=== PATIENT | female | born 1965 | race Caucasian/White ===

== ENCOUNTER 2023-03-18 12:18 | Inpatient (IN) | payer OTHER ==
[~2023-03-18] VITALS: Ht 172.7 cm; Wt 103.8 kg
[2023-03-18 15:20] VITALS: BP 147/83
[2023-03-18] MEDS ORDERED: PAROEX473 ML MM (15:27)
--- NOTE | 2023-03-18 15:41 | NUR ---
ADMIT NOTE: REPORT RECEIVED FROM VITA SAENZ IN [place]. PT ARRIVED TO UNIT VIA WHEELCHAIR. PT A/O X 4, IND WITH TX TO BED. PT DENIES CHEST PAIN, SOB, NAUSEA. PT ORIENTED TO ROOM, CALL LIGHT AND FALL PRECAUTIONS. NOTIFIED PT ON UNIT. AWAITING ORDERS.
[2023-03-18 16:56] LABS: Hematocrit 42.2 % (33.0-51.0); Mean Corpuscular HGB 28.9 pg (26.0-34.0); Mean Corpuscular HGB Conc 33.2 g/dL (31.5-36.5); Mean Corpuscular Volume 87 fL (80-100); Mean Platelet Volume 10.2 fL (9.1-12.4); Platelet Count 246 K/mm3 (150-400); RDW Standard Deviation 38.6 fL (35.1-46.3); Red Blood Cell Count 4.85 M/mm3 (3.80-5.20)
[2023-03-18 17:03] LABS: Bun/Creatinine Ratio 16.4 (12.0-20.0); Calcium, Blood 8.8 mg/dL (8.5-10.1); Creatinine, Blood 0.61 mg/dL (0.40-1.00); Potassium, Blood 3.7 mmol/L (3.5-5.5)
--- NOTE | 2023-03-18 18:53 | NUR ---
SHIFT SUMMARY: PT A/O X 4, IND IN ROOM. PLEASANT AND COOPERATIVE WITH CARE. PT DENIES CP THIS SHIFT. PT TOLERATING ORAL INTAKE WELL. TELEMETRY REPORTED SLIGHT ST ELEVATION PT WAS ASYMPTOMATIC DURING REPORT. PT EDUCATED ON IGNITION SOURCES AND RISK FOR INJURY WHILE SMOKING WITH OXYGEN. PT VU. PT IS NOT ON OXYGEN AND DENIES HAVING ANY IGNITION SOURCES. PT SHOWED NO SIGNS OF UTILIZING IGNITION SOURCES WHILE ROUNDING.
[2023-03-18 20:03] VITALS: BP 132/77
[2023-03-19 04:22] VITALS: BP 114/58
--- NOTE | 2023-03-19 04:25 | NUR ---
SHIFT SUMMARY NO NEW ISSUES. PT HAS DENIED CX PAIN/ PRESSURE OR SOB. PT HAD A GRISSOM AND SOME ANXIETY, PT TX PER MAR WITH RELIEF. PT HAS BEEN NPO SINCE 0000 HRS. PT HAS SLEPT COMFORTABLY DURING SHIFT. CALL LIGHT IN REACH.
[2023-03-19 08:58] VITALS: BP 132/86
[2023-03-19 14:29] VITALS: BP 138/73
--- NOTE | 2023-03-19 14:49 | NUR ---
CALLED DR WALDEN- PT CALLED STATING SHE HAD THIS NAGGING 1/10 CHEST DISCOMFORT STARTING AT THE MID AXILLARY LEFT CHEST AND RADIATING INTO THE MIDDLE OF THE LEFT CHEST, PT DOES NOT APPEAR TO BE IN ANY DISTRESS. PT STATES THE PAIN STARTED WHEN THE RESTING PORTION OF THE STRESS TEST WAS STARTED, BUT IT ISNT GETTING ANY BETTER. VSS AT THIS TIME NO CHANGE ON TELE. SPOKE TO DR WALDEN AND RECIEVED AN ORDER FOR AN EKG NOW AND CTM.
--- NOTE | 2023-03-19 19:30 | NUR ---
SHIFT SUMMARY- PT ALERT, ORIENTED AND INDEPENDENT IN THE ROOM. PT HAS STATED LEFT SIDED CHEST PAIN 09/25. EKG DONE AND IN THE CHART. PT HAD A PE STUDY AND THE FIRST HALF OF THE CARDIAC STRESS TEST DONE. PT TO BE NPO AT MIDNIGHT WATER AND ICE OK. PT IN BED AT THE TIME OF BEDSIDE REPORT, NO S&S OF DISTRESS NOTED AT THAT TIME.
[2023-03-19 19:40] VITALS: BP 139/90
[2023-03-20 02:43] VITALS: BP 113/62
--- NOTE | 2023-03-20 07:24 | NUR ---
NPO FOR STRESS TEST THIS MORNING. DENIES CP THIS MORNING. MILD ANXIETY ABOUT STRESS TEST OTHERWISE NO ISSUES. INDEPENDENT, AO, PLEASANT, VSS. UNEVENTFUL NIGHT.
--- NOTE | 2023-03-20 08:00 | NUR ---
0.4 MG IV LEXISCAN GIVEN AT 0800 DURING STRESS TEST. UNABLE TO DOCUMENT IN EMAR
[2023-03-20 15:16] VITALS: BP 143/83
--- NOTE | 2023-03-20 16:38 | NUR ---
PT IS A/OX4, PLEASANT AND COOPERATIVE, THE PT IS UP IND IN HER ROOM. THE PT APPEARS TO BE BREATHING EASILY ON RA AT THIS TIME. THE PT DENIED ANY C/P OR N/V T/O THE DAY. THE PT COMPLETED THE ORDERED STRESS TEST THIS AM. THE PT IS NOW SCHEDULED FOR A ANGIOGRAM IN THE EARLY AM 03/21/23. CALL LIGHT IN REACH, WILL CONTINUE TO MONIOT AND ASSESS FOR CHANGES
[2023-03-20 19:29] VITALS: BP 134/81
[2023-03-21] VITALS (8 sets, daily range): BP systolic 107–147; BP diastolic 68–92
--- NOTE | 2023-03-21 05:31 | NUR ---
SHIFT SUMMARY PT REQUESTED ATIVAN X1 THIS SHIFT WITH POSITIVE EFFECT. NO CP OR C/O HEADACHE. NPO SINCE MIDNIGHT FOR ANGIOGRAM THIS MORNING
--- NOTE | 2023-03-21 08:56 | NUR ---
PATIENT ARRIVED TO FLOOR FROM [facility] AT 0850. PATIENT IS A&OX4. VS ARE WNL AND IS ON RA. HER RIGHT WRIST TR BAND IS ON AND HAD NO HEMATOMA OR ACTIVE BLEEDING AT THIS TIME. PATIENT DENIES NUMBNESS OR TINGLING IN ALL EXTREMITIES. CAN MOVE ALL FINGERS AND TOES WHEN ASKED. FINGERS ARE WARM TO TOUCH. PATIENT IS LAYING IN BED WITH CALL LIGHT IN REACH. PATIENT AND PATIENTS WERE EDUCATED ON IGNITION SOURCES AND RISK OF INJURY WITH OXYGEN IN USE. BOTH VERBALIZED UNDERSTANDING OF EDUCATION AND HAD NO FURTHER QUESTIONS AT THIS TIME. IS AT BEDSIDE.
--- NOTE | 2023-03-21 09:54 | NUR ---
PATIENTS TR BAND CONTINUES TO NOT HAD A HEMATOMA OR ACTIVE BLEEDING. VS ARE WNL AND IS ON RA. PATIENT DENIES CHEST PAIN OR PRESSURE. FINGERS ARE WARM TO TOUCH. SHE DENIES NUMBNESS OR TINGLING IN ALL EXTREMITIES. PATIENT CONTINUES TO LAY IN BED WITH CALL LIGHT IN REACH. AT BEDSIDE.
--- NOTE | 2023-03-21 10:42 | NUR ---
PATIENTS TR BAND SITE CONTINUES TO NOT HAVE A HEMATOMA OR ACTIVE BLEEDING. FINGERS AND TOES ARE WARM TO TOUCH AND IS ABLE TO MOVE ALL FINGERS AND TOES. PATIENT DENIES CHEST PAIN OR SOB. VS ARE WNL AND IS ON RA WITH >90% OXYGEN SATS. PATIENT TOLERATED PO INTAKE. SHE IS LAYING IN BED WITH CALL LIGHT IN REACH. AT BEDSIDE.
--- NOTE | 2023-03-21 10:47 | NUR ---
IT HAS BEEN ABOUT 2 HOURS SINCE THE TR BAND WITH 10CC OF AIR WAS PLACED. THIS NURSE DECREASED THE 10CC OF AIR BY 2CC AND MONITORED IT FOR 5 MINUTES AFTERWARDS. THERE IS NO HEMATOMA OR ACTIVE BLEEDING OCCURING. PATIENT IS LAYING IN BED WITH CALL LIGHT IN REACH.
--- NOTE | 2023-03-21 10:58 | NUR ---
AFTER 10 MINUTES THIS NURSE WENT IN AND TOOK ANOTHER 2CC'S OF AIR OUT OF THE TR BAND FOR A 6CC'S AT THIS TIME. THIS NURSE WAITED ABOUT 3 MINUTES AND THE RADIAL SITE HAD NO HEMATOMA OR ACTIVE BLEEDING. PATIENTS FINGERS ARE WARM TO TOUCH AND SHE DENIES NUMBNESS OR TINGLING. PATIENT IS LAYING IN BED WITH CALL LIGHT IN REACH. AT BEDSIDE.
--- NOTE | 2023-03-21 11:17 | NUR ---
THIS NURSE DECREASED THE TR BAND AIR BALLOON BY ANOTHER 2CC'S WHICH IS A TOTAL OF 4CC'S. THIS NURSE WAITED FOR ABOUT 3 MINUTES AFTER DECREASING THE AIR AND THERE WAS NO HEMATOMA OR ACTIVE BLEEDING. PATIENTS VS ARE WNL AND IS ON RA WITH >90% OXYGEN SATS. FINGERS ARE WARM TO TOUCH AND CAN MOVE ALL FINGERS AND TOES. SHE IS LAYING IN BED WITH CALL LIGHT IN REACH AND AT BEDSIDE.
--- NOTE | 2023-03-21 11:42 | NUR ---
LATE ENTRY PT ALERT AND ORIENTED X4. INDEPENDENT. ANGIOGRAM PLANNED. REPORT GIVEN TO PCU NURSE.
--- NOTE | 2023-03-21 12:29 | NUR ---
THIS NURSE JUST LET OUT ANOTHER 2CC'S OF AIR FROM THE TR BAND WITH A TOTAL OF 2CC'S LEFT. THIS NURSE WAITED ANOTHER 3 MINUTES AFTERWARDS AND THERE WAS NO HEMATOMA OR BLEEDING NOTED. PATIENT IS ABLE TO MOVE ALL FINGERS AND TOES. SHE IS TOLERATING PO INTAKE. SHE IS LAYING IN BED WITH CALL LIGHT IN REACH AND AT BEDSIDE.
--- NOTE | 2023-03-21 12:43 | NUR ---
THIS NURSE JUST TOOK OUT THE LAST 2CC'S OF AIR IN THE AIR BALLOON FOR THE TR BAND. THIS NURSE WAITED A FEW MINUTES AND THERE WAS NO HEMATOMA OR ACTIVE BLEEDING THAT OCCURRED. SHE IS VOIDING AND TOLERATING PO INTAKE. SHE IS LAYING IN BED AND HAS CALL LIGHT WITHIN REACH.
--- NOTE | 2023-03-21 13:24 | NUR ---
THIS NURSE WAITED 30 MINUTES AFTER TAKING OUT ALL OF THE AIR FROM THE TR AIR BALLOON THEN TOOK OFF THE TR BAND AND PLACED A TEGADERM OVER THE INCISION. NO HEMATOMA OR ACTIVE BLEEDING HAPPENED TO RADIAL SITE. TEGADERM IS C/D/I WITH ARM BAND IN PLACE. PATIENT DENIES NUMBNESS OR TINGLING TO ALL FINGERS AND TOES. PATIENT IS LAYING IN BED WITH CALL LIGHT IN REACH AND AT BEDSIDE.
--- NOTE | 2023-03-21 16:47 | NUR ---
SHIFT SUMMARY: PATIENT IS A&OX4. VS ARE WNL AND IS ON RA. PATIENT DENIES PAIN THROUGHOUT SHIFT. HER RIGHT RADIAL SITE FROM HER ANGIOGRAM EARLIER TODAY HAS TEGADERM OVER IT AND IS C/D/I. ARM BOARD IS IN PLACE ON THE RIGHT HAND. THERE IS NO HEMATOMA OR ACTIVE BLEEDING FROM SITE. FINGERS AND TOES ARE WARM TO TOUCH AND ALL PEDAL AND RADIAL PULSES ARE STRONG. PATIENT IS TOLERATING PO INTAKE AND IS VOIDING. SHE IS INDEP. IN THE ROOM AND CALLS APPROPRIATELY. SHE IS LAYING IN BED WITH CALL LIGHT IN REACH.
[2023-03-22 00:07] VITALS: BP 130/74
--- NOTE | 2023-03-22 05:39 | NUR ---
Assumed care of pt at 1900. A/Ox4. C/o headache during the night, relieved with tylenol. Patient states for the past month she's been getting them often. SR on tele 80's with BBB, Denies CP/pressure, VSS. R radial site C/D/I and without hematoma. No acute events overnight, will report to dayshift RN. Patient educated on risk RE: ignition sources and risk of injury while oxygen is in use. Patient denies smoking & patient/family verbalize understanding.
[2023-03-22 06:11] VITALS: BP 132/74
[2023-03-22 08:00] VITALS: BP 145/85
[2023-03-22] MEDS ORDERED: ENTRESTO 24 MG1 EACH PO (09:46)
--- NOTE | 2023-03-22 11:04 | NUR ---
DISCHARGE/SHIFT SUMMARY This RN assumed care at 0700. vital signs stable. patient is alert and oriented x4. patient is able to make needs known. this rn went over fire ignition sources. patient verbalized understnading and having no sources. patient had a shower and did morning adls independently. see shift assessment for further detials. patient reports no pain, chest pain/pressure, or shortness of breath. patient discharge order in. this rn in room and went over discharge education. this rn went over new medications and that they have been faxed to her pharmacy, [facility] in [place]. this rn went over follow up appointments, and radial site care. patient and patient verbalized understanding. patient left with all belongings and discharge packet. patient left in no distress
== END 2023-03-22 10:37 | disposition home or self-care (01) | DRG 287 ==
LOC: MEDS 15:16 → UNDOADMOB 15:16 → MEDS 03-20 11:41 → PCU 03-21 08:40
PROVIDERS: ADMIT Internal Medicine
PROC: 4A023N7 Measurement of Cardiac Sampling and Pressure, Left Heart, Percutaneous Approach (ICD-10-PCS; principal; 2023-03-21)
PROC: B2111ZZ Fluoroscopy of Multiple Coronary Arteries using Low Osmolar Contrast (ICD-10-PCS; 2023-03-21)
DX: I42.9 Cardiomyopathy, unspecified (principal); F41.0 Panic disorder [episodic paroxysmal anxiety]; K21.9 Gastro-esophageal reflux disease without esophagitis; R94.39 Abnormal result of other cardiovascular function study; I44.7 Left bundle-branch block, unspecified; F41.9 Anxiety disorder, unspecified; Z90.710 Acquired absence of both cervix and uterus; Z86.14 Personal history of Methicillin resistant Staphylococcus aureus infection; Z88.5 Allergy status to narcotic agent; Z88.2 Allergy status to sulfonamides; Z79.899 Other long term (current) drug therapy; Z98.890 Other specified postprocedural states
CPT/HCPCS: 36415; 71260; 76937; 78452; 80048; 84484; 85027; 85379; 93005; 93010; 93017; 93306; 93458; 99152; 99153; A9270; A9500; C1769; C1887; C1894; G0378; J0706; J2250; J2785; J3010; J7030; J7050; Q9967